=== PATIENT | female | born 1940 | race Caucasian/White ===

== ENCOUNTER 2017-08-25 08:45 | Day surgery (SDC) | payer MEDICARE, OTHER ==
[2017-08-25] MEDS ORDERED: Sodium Chloride 0.9% 10 ML Syringe FLUSH PRN (09:00)
[2017-08-25] MEDS ORDERED: Lactated Ringers 1,000 ML IV SCH (10:00)
[2017-08-25] MEDS ORDERED: Propofol 200 MG/20 ML SDV IV ONE (10:48)
--- NOTE | 2017-08-26 08:37 | OR ---
DATE OF OPERATION: 08/25/2017 SURGEON: Gavino Ponce MD PREOPERATIVE DIAGNOSIS: Cataract, left eye. POSTOPERATIVE DIAGNOSIS: Cataract, left eye. PROCEDURE: Phacoemulsification of cataract left eye with the placement of an Bear, model ZCB00, 22.0 diopter, foldable, posterior chamber intraocular lens. STAPLER COIL UNIT: None. DESCRIPTION OF PROCEDURE: Peribulbar anesthetic was performed using a mixture of 2% lidocaine with Wydase. The patient was prepped and draped in the usual fashion. A 3 mm fornix based conjunctival flap was performed at the 10 o'clock position. Hemostasis was obtained using diathermy, and a 2.8 mm grooved near clear corneal incision was then made. A stab incision was made into the anterior chamber at the 12 o'clock position and a second stab wound incision was made underlying the grooved near clear corneal incision. Viscoat was instilled into the anterior chamber, and a continuous tear capsulotomy was performed. Hydrodissection was accomplished with balanced salt solution, and the nucleus was removed in a divide and conquer fashion. The remaining cortical material was removed with the irrigation and aspiration unit. Viscoat was instilled into the anterior chamber, and an AUREA, model [id number], 22.0 diopter, foldable, posterior chamber intraocular lens was placed into the capsular bag, the haptics placement at the 1 and 7 o'clock positions. The residual Viscoat was removed from the anterior chamber and the anterior chamber reformed with balanced salt solution. The wound was checked and noted to be watertight. The conjunctiva was secured in its original position with diathermy. Alphagan and Maxitrol Ointment were then placed into the patient's eye. The patient tolerated the procedure well and it was without complication. Elapsed phacoemulsification time was 41.2 seconds. Postoperative instructions as related to activities, as well as medications, were reviewed with the patient. The patient was instructed to return to see me on the day following surgery for the first postoperative check. The patient was also instructed to contact me prior to that time if the patient were to have any problems. ADDENDUM: Because of minor discomfort, 0.2 mL of a mixture of phenylephrine, lidocaine, and balanced salt solution were instilled into the anterior chamber during the course of the surgery. This resolved the discomfort. /[id number] DEG/MODL CC: SILVER GARCIA PA-C MTDD
== END 2017-08-25 12:40 | disposition home or self-care (01) ==
LOC: FB.SDS 08:45
PROVIDERS: ATTEND Ophthalmology
DX: H26.9 Unspecified cataract (principal); I25.10 Atherosclerotic heart disease of native coronary artery without angina pectoris; I10 Essential (primary) hypertension; E11.9 Type 2 diabetes mellitus without complications; J44.9 Chronic obstructive pulmonary disease, unspecified; E78.5 Hyperlipidemia, unspecified; E66.9 Obesity, unspecified; I73.9 Peripheral vascular disease, unspecified; Z95.5 Presence of coronary angioplasty implant and graft; Z68.30 Body mass index [BMI] 30.0-30.9, adult; Z79.84 Long term (current) use of oral hypoglycemic drugs; Z79.899 Other long term (current) drug therapy; Z88.0 Allergy status to penicillin; Z88.8 Allergy status to other drugs, medicaments and biological substances; Z87.891 Personal history of nicotine dependence
CPT/HCPCS: 66984; 82962; C1780; J2704; J7120; 00142-QZ

== ENCOUNTER 2017-09-14 07:25 | Day surgery (SDC) | payer MEDICARE, OTHER ==
[2017-09-14] MEDS ORDERED: Lactated Ringers 1,000 ML IV SCH (07:30)
[2017-09-14] MEDS ORDERED: Propofol 200 MG/20 ML SDV IV ONE (09:20)
--- NOTE | 2017-09-15 11:02 | OR ---
DATE OF OPERATION: 09/14/2017 SURGEON: Gavino Ponce MD PREOPERATIVE DIAGNOSIS: Cataract right eye. POSTOPERATIVE DIAGNOSIS: Same. OPERATION PERFORMED: Phacoemulsification of cataract right eye with placement of Bear, model ZCB00, 21.0 diopter, foldable, posterior chamber intraocular lens. COMMUTATOR OPERATOR: None. DESCRIPTION OF PROCEDURE: Peribulbar anesthetic was performed using a mixture of 2% lidocaine with Wydase. The patient was prepped and draped in the usual fashion. A 3 mm fornix based conjunctival flap was performed at the 12 o'clock position. Hemostasis was obtained using diathermy, and a 2.8 mm grooved near clear corneal incision was then made. A stab incision was made into the anterior chamber at the 2:30 o'clock position and a second stab wound incision was made underlying the grooved near clear corneal incision. Viscoat was instilled into the anterior chamber, and a continuous tear capsulotomy was performed. Hydrodissection was accomplished with balanced salt solution, and the nucleus was removed in a divide and conquer fashion. The remaining cortical material was removed with the irrigation and aspiration unit. Viscoat was instilled into the anterior chamber, and an Bear, model ZCB00, 21.0 diopter, foldable, posterior chamber intraocular lens was placed into the capsular bag, the haptics being positioned at the 3 and 9 o'clock positions. The residual Viscoat was removed from the anterior chamber and the anterior chamber reformed with balanced salt solution. The wound was checked and noted to be watertight. The conjunctiva was secured in its original position with diathermy. Alphagan and Maxitrol Ointment were then placed into the patient's eye. The patient tolerated the procedure well and it was without complication. Elapsed phacoemulsification time was 20.3 seconds. Postoperative instructions as related to activities as well as medications were reviewed with the patient. The patient was instructed to return to see me on the day following surgery for the first postoperative check. The patient was also instructed to contact me prior to that time if she were to have any problems. /[id number] DEG/MODL CC: SILVER GARCIA, PROMOTION SPECIALIST
== END 2017-09-14 10:43 | disposition home or self-care (01) ==
LOC: FB.SDS 07:25
PROVIDERS: ATTEND Ophthalmology
DX: H26.9 Unspecified cataract (principal); I10 Essential (primary) hypertension; I25.10 Atherosclerotic heart disease of native coronary artery without angina pectoris; E11.9 Type 2 diabetes mellitus without complications; E66.9 Obesity, unspecified; J44.9 Chronic obstructive pulmonary disease, unspecified; E78.5 Hyperlipidemia, unspecified; I73.9 Peripheral vascular disease, unspecified; Z68.39 Body mass index [BMI] 39.0-39.9, adult; Z79.84 Long term (current) use of oral hypoglycemic drugs; Z79.899 Other long term (current) drug therapy; Z87.891 Personal history of nicotine dependence; Z88.0 Allergy status to penicillin; Z88.8 Allergy status to other drugs, medicaments and biological substances
CPT/HCPCS: 00142; 66984; 82962; C1780; J2704; J7120

== ENCOUNTER 2018-05-07 07:07 | Day surgery (SDC) | payer MEDICARE, OTHER ==
[2018-05-07] MEDS ORDERED: Lactated Ringers 1,000 ML IV SCH (07:30)
[2018-05-07] MEDS ORDERED: Sodium Chloride 0.9% 10 ML Syringe FLUSH PRN (07:30)
[2018-05-07] MEDS ORDERED: Propofol 200 MG/20 ML SDV IV ONE (08:30)
--- NOTE | 2018-05-07 09:28 | PCM.OPNOTE ---
- General Post-Op/Procedure Note Date of Surgery/Procedure: 05/07/18 Operative Procedure(s): c scope with bx Findings: ascending colon polyp, transverse colon polyp, rectal polyps x2 Pre Op Diagnosis: + cologuard Post-Op Diagnosis: ascending colon polyp, transverse colon polyp, rectal polyps x2 Anesthesia Technique: [facility] [place] Primary Surgeon: Jhonny Levy Anesthesia Provider: Won Perez Pathology: ascending colon polyp, transverse colon polyp, rectal polyps x2 Complications: None Condition: Good Free Text/Narrative:: see dictation #[id number]
--- NOTE | 2018-05-07 16:38 | OR ---
DATE OF OPERATION: 05/07/2018 SURGEON: Jhonny Levy MD PROCEDURE PERFORMED: Colonoscopy with hot loop snare and cold forceps biopsy. PREOPERATIVE DIAGNOSIS: Positive Cologuard. POSTOPERATIVE DIAGNOSES: 1. Ascending colon polyp. 2. Transverse colon polyp. 3. Rectal polyp x2 at the proximal and the distal rectum. INDICATIONS FOR PROCEDURE: This is a 77-year-old white female who has never had a colonoscopy, recently had a positive Cologuard exam, and was offered and accepted a colonoscopy. DESCRIPTION OF PROCEDURE: After an excellent IV sedation was administered, digital rectal exam was performed. No marked abnormality was noted. The flexible colonoscope was then inserted and advanced to the cecum without difficulty. The prep was excellent. The following findings were noted: Ascending colon: A small sessile polyp, biopsied with the hot loop snare, and submitted for permanent. Transverse colon: Demonstrated a small polyp, biopsied with cold biopsy forceps, and sent for permanent. Descending colon: Unremarkable. Sigmoid: Occasional diverticula. Rectum: At the proximal rectum, a large pedunculated polyp was removed piecemeal with multiple passes of the hot loop snare. The base was tattooed with ink. There was also in that area another small polyp which was biopsied and submitted in the same container. Just above the anal verge, there was also a pedunculated polyp that was biopsied with the hot loop snare and submitted for permanent. The proximal sigmoid polyp was approximately 3 cm in diameter. The distal rectal polyp was roughly about 2 cm in diameter. The patient tolerated the procedure well and was taken to Recovery in good condition. /[id number] /JOSEEL
== END 2018-05-07 10:25 | disposition home or self-care (01) ==
LOC: FB.SDS 07:07
PROVIDERS: ATTEND Surgery
DX: R19.5 Other fecal abnormalities (principal); D12.8 Benign neoplasm of rectum; K63.5 Polyp of colon; K57.30 Diverticulosis of large intestine without perforation or abscess without bleeding; I10 Essential (primary) hypertension; J44.9 Chronic obstructive pulmonary disease, unspecified; E11.36 Type 2 diabetes mellitus with diabetic cataract; E66.9 Obesity, unspecified; Z68.41 Body mass index [BMI] 40.0-44.9, adult; E78.5 Hyperlipidemia, unspecified; I73.9 Peripheral vascular disease, unspecified; I25.10 Atherosclerotic heart disease of native coronary artery without angina pectoris; Z87.891 Personal history of nicotine dependence; Z79.84 Long term (current) use of oral hypoglycemic drugs; Z79.899 Other long term (current) drug therapy; Z88.0 Allergy status to penicillin; Z88.6 Allergy status to analgesic agent; Z88.1 Allergy status to other antibiotic agents; Z80.0 Family history of malignant neoplasm of digestive organs
CPT/HCPCS: 00812; 45380; 45381; 45385; 82962; 88305; J2704; J7120

== ENCOUNTER → 2018-05-08 | Day surgery (SDC) | payer MEDICARE, OTHER ==
[~2018-05-08] MED LIST: Sodium Phosphate,Monobasic/Sodium Phosphate,Dibasic Enema 133 ML Bottle RECTAL ONE
--- NOTE | 2018-05-08 12:44 | PCM.HP ---
H&P History of Present Illness - General Date of Service: 05/08/18 Admit Problem/Dx: hematochezia Source of Information: Patient - History of Present Illness Initial Comments - Free Text/Narative: Pt underwent a c scope yesterday with a removal of two rectal polyps. She noted some bleeding today. She has passes some blood several times. She does take plavix and has had a does since the procedure. CBC this am was unremarkable. She has no pain. The proximal polyp was large and did come out in pieces with some bleeding. - Related Data Allergies/Adverse Reactions: Allergies Allergy/AdvReac Type Severity Reaction Status Date / Time clotrimazole Allergy Rash Verified 05/08/18 12:35 Penicillins AdvReac Change Verified 05/08/18 12:35 Mental Status Home Medications: Home Meds Calcium Carbonate/Vitamin D3 [Calcium 600 + Vit D 200] 1 each PO BIDMEALS [History] Clopidogrel Bisulfate [Clopidogrel] 75 mg PO DAILY 08/24/17 [History] Gabapentin [Neurontin] 100 mg PO BEDTIME 08/24/17 [History] Lisinopril 20 mg PO DAILY 08/24/17 [History] Metoprolol Tartrate 25 mg PO BID 08/24/17 [History] Simvastatin [Zocor] 20 mg PO BEDTIME 08/24/17 [History] diphenhydrAMINE [Benadryl] 25 mg PO BEDTIME PRN 08/24/17 [History] hydroCHLOROthiazide [Hydrochlorothiazide] 25 mg PO DAILY 08/24/17 [History] metFORMIN HCl [Metformin HCl] 500 mg PO BIDMEALS 08/24/17 [History] Past Medical History HEENT History: Reports: Cataract, Impaired Vision Cardiovascular History: Reports: CAD, High Cholesterol, Hypertension, MT, PVD, Stents Respiratory History: Reports: COPD Gastrointestinal History: Reports: None Genitourinary History: Reports: Other (See Below) Other Genitourinary History: PT HAS HAD YEAST 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 History: Reports: Other OB/BYN History: Musculoskeletal History: Reports: Osteoarthritis Neurological History: Reports: Migraines, Neuropathy, Diabetic Psychiatric History: Reports: None Endocrine/Metabolic History: Reports: Diabetes, Type II, Obesity/BMI 30+ Hematologic History: Reports: Anticoagulation Therapy Other Hematologic History: Is on Plavix Immunologic History: Reports: None Oncologic (Cancer) History: Reports: None Dermatologic History: Reports: None - Infectious Disease History Infectious Disease History: Reports: Chicken Pox, Scarlet Fever - Past Surgical History Head Surgeries/Procedures: Reports: None HEENT Surgical History: Reports: Cataract Surgery Other HEENT Surgeries/Procedures: bilat cataract surgery Cardiovascular Surgical History: Reports: Coronary Artery Stent, Other (See Below) Other Cardiovascular Surgeries/Procedures: stents in heart & legs Respiratory Surgical History: Reports: None GI Surgical History: Reports: Colonoscopy Female Surgical History: Reports: None Endocrine Surgical History: Reports: None Neurological Surgical History: Reports: None Musculoskeletal Surgical History: Reports: None Oncologic Surgical History: Reports: None Social & Family History - Family History Family Medical History: Noncontributory - Tobacco Use Smoking Status *Q: Former Smoker Years of Tobacco use: 30 Used Tobacco, but Quit: Yes Month/Year Tobacco Last Used: 1996 - Caffeine Use Caffeine Use: Reports: Coffee, Soda - Recreational Drug Use Recreational Drug Use: No H&P Review of Systems - Review of Systems: Review Of Systems: See Below General: Reports: No Symptoms Pulmonary: Reports: No Symptoms Cardiovascular: Reports: No Symptoms Gastrointestinal: Reports: Hematochezia Exam - Exam Exam: See Below - Vital Signs Vital Signs: Last Vital Signs Temp 97.7 F 05/08/18 11:30 Pulse 73 05/08/18 11:30 Resp 18 05/08/18 11:30 BP 100/88 05/08/18 11:30 Pulse Ox 98 05/08/18 11:30 Weight: 99.79 kg - Exam General: Alert, Oriented, Cooperative. No: Mild Distress Lungs: Clear to Auscultation, Normal Respiratory Effort Cardiovascular: Regular Rate, Regular Rhythm GI/Abdominal Exam: Normal Bowel Sounds, Soft, Non-Tender, No Organomegaly Rectal (Female) Exam: Deferred (will obtain a flex sig ) - Patient Data Lab Results Last 24 hrs: Laboratory Results - last 24 hr 05/08/18 Range/Units 11:55 WBC 7.7 (4.5-12.0) X10-3/uL RBC 4.54 (3.23-5.20) x10(6)uL Hgb 12.4 (11.5-15.5) g/dL Hct 37.9 (30.0-51.3) % MCV 83.6 (80-96) fL MCH 27.3 L (27.7-33.6) pg MCHC 32.7 (32.2-35.4) g/dL RDW 15.3 (11.5-15.5) % Plt Count 170 (125-369) X10(3)uL MPV 7.8 (7.4-10.4) fL Neut % (Auto) 71.4 (46-82) % Lymph % (Auto) 17.4 (13-37) % [place] % (Auto) 7.4 (4-12) % Eos % (Auto) 2 (1.0-5.0) % Baso % (Auto) 2 (0-2) % Neut # (Auto) 5.5 (1.6-8.3) # Lymph # (Auto) 1.3 (0.6-5.0) # [place] # (Auto) 0.6 (0.0-1.3) # Eos # (Auto) 0.2 (0.0-0.8) # Baso # (Auto) 0.1 (0.0-0.2) # Result Diagrams: 05/08/18 11:55 *Q Meaningful Use (ADM) - VTE Risk Assess *Q Each Risk Factor Represents 2 Points: Age 60 - 74 Years Total Score 2 Point Risk Factors: 2 - Problem List (1) Hematochezia SNOMED Code(s): 542095585 ICD Code: K92.1 - MELENA Status: Acute Current Visit: Yes Problem List Initiated/Reviewed/Updated: Yes Orders Last 24hrs: Active Orders 24 hr Category Date Time Status Verify Patient Consent Obtain [RC] ASDIRECTED Care 05/08/18 12:34 Ordered Na Phos,M-B/Na Phos,DI-B [Fleet Enema] Med 05/08/18 12:33 Once 133 ml RECTAL ONETIME ONE Medication Orders Sodium Biphosphate/Sodium Phosphate (Fleet Enema) 133 ml RECTAL ONETIME ONE Stop: 05/08/18 12:34 Assessment/Plan Comment:: will perform a flex sig to eval the biopsy sites. procedure and risks explained to the pt to include bleeding infection and perforation. she asks us to proceed.
--- NOTE | 2018-05-08 13:37 | PCM.OPNOTE ---
- General Post-Op/Procedure Note Date of Surgery/Procedure: 05/08/18 Operative Procedure(s): flex sig Findings: no active bleeding noted. Pre Op Diagnosis: bleeding per rectum Post-Op Diagnosis: no active bleeding Primary Surgeon: Jhonny Levy Condition: Good Free Text/Narrative:: see dictation
--- NOTE | 2018-05-08 21:41 | OR ---
DATE OF OPERATION: 05/08/2018 SURGEON: Jhonny Levy MD PROCEDURE PERFORMED: Flexible sigmoidoscopy. PREOPERATIVE DIAGNOSIS: Bleeding per rectum. POSTOPERATIVE DIAGNOSIS: No active bleeding noted. INDICATIONS FOR PROCEDURE: This is a 77-year-old white female who had 2 large rectal polyps yesterday, noted some passage of some blood clot and bleeding today with bowel movements. She was offered and accepted flexible sigmoidoscopy to look for active bleeding. DESCRIPTION OF OPERATION: After receiving an enema, digital rectal exam was performed. The flexible endoscope was entered and advanced 20 cm. The scope was slowly withdrawn. The larger of the 2 biopsy sites in the rectum demonstrated no evidence of bleeding and in fact looked very appropriate for 24 hours after a loop snare biopsy. The distal rectal polyp which was just above the anal verge had some old clot, but no active bleeding. Attempts to irrigate the clot off were unsuccessful and it appeared to not require intervention. We will have the patient hold her Plavix until Thursday, keep her followup appointment on Thursday. We have asked her to return as needed. /[id number] /MODL
== END | disposition home or self-care (01) ==
LOC: FB.ED 11:27 → FB.SDS 13:02
PROVIDERS: ATTEND Surgery
DX: K62.5 Hemorrhage of anus and rectum (principal); E11.9 Type 2 diabetes mellitus without complications; I10 Essential (primary) hypertension; J44.9 Chronic obstructive pulmonary disease, unspecified; I25.10 Atherosclerotic heart disease of native coronary artery without angina pectoris; E78.00 Pure hypercholesterolemia, unspecified; I25.2 Old myocardial infarction; Z95.5 Presence of coronary angioplasty implant and graft; Z79.84 Long term (current) use of oral hypoglycemic drugs; Z79.899 Other long term (current) drug therapy; E66.9 Obesity, unspecified; Z79.01 Long term (current) use of anticoagulants; Z87.891 Personal history of nicotine dependence; Z86.010 Personal history of colon polyps; Z88.1 Allergy status to other antibiotic agents; Z88.0 Allergy status to penicillin
CPT/HCPCS: 36415; 85025; 99284

== ENCOUNTER 2019-01-05 06:44 | Day surgery (SDC) | payer MEDICARE, OTHER ==
[2019-01-05] MEDS ORDERED: Midazolam 1 MG/ML 2 ML SDV IV ONE (06:45)
[2019-01-05] MEDS ORDERED: Lactated Ringers 1,000 ML IV SCH (06:45)
[2019-01-05] MEDS ORDERED: Propofol 200 MG/20 ML SDV IV ONE (06:45)
--- NOTE | 2019-01-05 08:21 | PCM.OPNOTE ---
- General Post-Op/Procedure Note Date of Surgery/Procedure: 01/05/19 Operative Procedure(s): c scope with bx Findings: ascendign, descending and sigmoid polyp Pre Op Diagnosis: hx of colon polyps Post-Op Diagnosis: ascendign, descending and sigmoid polyp Anesthesia Technique: MAC Primary Surgeon: Jhonny Levy Anesthesia Provider: Linda Bueno Pathology: ascendign, descending and sigmoid polyp Complications: None Condition: Good Free Text/Narrative:: see dictation
--- NOTE | 2019-01-05 13:58 | OR ---
DATE OF OPERATION: 01/05/2019 SURGEON: Jhonny Levy MD PROCEDURE PERFORMED: Colonoscopy with hot loop and cold forceps biopsy. PREOPERATIVE DIAGNOSIS: Personal history of dysplastic colon polyps. POSTOPERATIVE DIAGNOSIS: Ascending colon polyp, descending colon polyp, and sigmoid colon. INDICATIONS FOR PROCEDURE: This is a 78-year-old white female, underwent a colonoscopy recently, was found to have some low-grade dysplasia, presents for followup scope at this time. DESCRIPTION OF OPERATION: After an excellent IV sedation was administered, digital rectal exam was performed. No marked abnormality was noted. Flexible colonoscope was inserted and advanced to cecum. Prep was excellent. The following findings were noted. In the ascending colon, small polypoid lesion which was rather flat, but this was biopsied with the hot loop snare and submitted in one container. Transverse colon was unremarkable. Descending colon, a small 2 mm area that appeared to be an early adenoma, biopsied and sent for permanent. Sigmoid at the distal sigmoid in the area where a previous biopsy was carried out, there was a 3 mm area that looked to be consistent with adenoma. This was biopsied as well. Remainder of the exam was unremarkable. The patient tolerated the procedure well and was taken to recovery in good condition. Results by letter. /[id number] /MODL
== END 2019-01-05 09:03 | disposition home or self-care (01) ==
LOC: FB.SDS 06:44
PROVIDERS: ATTEND Surgery
DX: D12.2 Benign neoplasm of ascending colon (principal); D12.5 Benign neoplasm of sigmoid colon; K63.5 Polyp of colon; I25.10 Atherosclerotic heart disease of native coronary artery without angina pectoris; I10 Essential (primary) hypertension; E11.51 Type 2 diabetes mellitus with diabetic peripheral angiopathy without gangrene; E78.00 Pure hypercholesterolemia, unspecified; J44.9 Chronic obstructive pulmonary disease, unspecified; E66.9 Obesity, unspecified; Z68.41 Body mass index [BMI] 40.0-44.9, adult; Z88.0 Allergy status to penicillin; Z88.6 Allergy status to analgesic agent; Z88.8 Allergy status to other drugs, medicaments and biological substances; Z95.5 Presence of coronary angioplasty implant and graft; Z87.891 Personal history of nicotine dependence; Z86.010 Personal history of colon polyps; Z79.84 Long term (current) use of oral hypoglycemic drugs; Z79.02 Long term (current) use of antithrombotics/antiplatelets; Z79.899 Other long term (current) drug therapy
CPT/HCPCS: 00812-QZ; 82962; 88305; J2250; J2704; J7120

== ENCOUNTER 2019-12-23 13:45 | Emergency (ER) | payer MEDICARE, OTHER ==
[2019-12-23] MEDS ORDERED: Albuterol/Ipratropium 3.0-0.5 MG/3 ML Neb Soln NEB ONE (14:13)
[2019-12-23] MEDS ORDERED: Furosemide 40 MG Tab PO ONE (14:14)
--- NOTE | 2019-12-23 15:04 | CR ---
INDICATION: Cough, shortness of breath. CHEST, 1 VIEW: An AP upright view of the chest was obtained 12/23/19 and compared with [facility] images from 03/16/15. Evidence of exogenous obesity is again noted. There is an appearance of a nodular density in the low middle, lateral lung field on the right. This could be artifactual. When clinically possible, PA and lateral views of the chest may be helpful for confirmation. It measured approximately 17 mm in craniolateral diameter. Its position is marked by an arrow on the right. No other nodular masses or definite active infiltrate or effusion was identified. The heart did not appear grossly enlarged. A minimal dextroconvex scoliosis of the lower middle thoracic spine is noted. Overlying EKG leads are noted. IMPRESSION: 1. No definite acute process. 2. Possible nodular mass - could not exclude neoplasia, not seen on previous study of 2014, in the right lower middle lung field laterally measuring 17 mm. Followup PA and lateral views of the chest recommended for further evaluation. 3. Exogenous obesity. 4. 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 Report was called to Dr. Gonzalez at 14:51 hours. [facility]
[2019-12-23] MEDS ORDERED: Sodium Chloride 0.9% 1,000 ML IV SCH (15:30)
--- NOTE | 2019-12-23 15:30 | EDM.PDOC ---
ED HPI GENERAL MEDICAL PROBLEM - General Chief Complaint: Respiratory Problem Stated Complaint: SOB Time Seen by Provider: 12/23/19 13:50 Source of Information: Reports: Patient History Limitations: Reports: No Limitations - History of Present Illness INITIAL COMMENTS - FREE TEXT/NARRATIVE: for one week has been feeling weak and tired with loss of appetite then since last 3days has been having sob on exertion , dry cough , no fever denies any chest pain was in clinic and noted to have decrease oxygen saturation and was sent in for evaluation pt has diabetes had stent placed in 2011 , has been on plavix since then Onset: Gradual - Related Data Allergies Allergy/AdvReac Type Severity Reaction Status Date / Time aspirin Allergy Other Verified 12/23/19 14:53 clotrimazole Allergy Rash Verified 12/23/19 14:53 Penicillins AdvReac Change Verified 12/23/19 14:53 Mental Status Home Meds: Home Meds Calcium Carbonate/Vitamin D3 [Calcium 600 + Vit D 200] 1 each PO BIDMEALS [History] Gabapentin [Neurontin] 200 mg PO BEDTIME 08/24/17 [History] Lisinopril 20 mg PO DAILY 08/24/17 [History] Metoprolol Tartrate 25 mg PO BID 08/24/17 [History] Simvastatin [Zocor] 20 mg PO BEDTIME 08/24/17 [History] diphenhydrAMINE [Benadryl] 25 mg PO BEDTIME PRN 08/24/17 [History] hydroCHLOROthiazide [Hydrochlorothiazide] 25 mg PO DAILY 08/24/17 [History] metFORMIN HCl [Metformin HCl] 500 mg PO BIDMEALS 08/24/17 [History] Clopidogrel Bisulfate [Clopidogrel] 1 tab PO DAILY 01/04/19 [History] Past Medical History HEENT History: Reports: Other (See Below) Other HEENT History: HX CONJUNCTIVITIS Cardiovascular History: Reports: CAD, High Cholesterol, Hypertension, PVD Respiratory History: Reports: COPD Gastrointestinal History: Reports: None, Colon Polyp Genitourinary History: Reports: Other (See Below) Other Genitourinary History: PT HAS HAD YEAST INFECTIONS IN PAST 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 History: Musculoskeletal History: Reports: Osteoarthritis Neurological History: Reports: Migraines, Neuropathy, Diabetic Psychiatric History: Reports: None Endocrine/Metabolic History: Reports: Diabetes, Type II Hematologic History: Reports: Anticoagulation Therapy Other Hematologic History: Is on Plavix Immunologic History: Reports: None Oncologic (Cancer) History: Reports: None Dermatologic History: Reports: None - Infectious Disease History Infectious Disease History: Reports: Chicken Pox, Scarlet Fever - Past Surgical History Head Surgeries/Procedures: Reports: None HEENT Surgical History: Reports: Cataract Surgery Other HEENT Surgeries/Procedures: bilat cataract surgery Cardiovascular Surgical History: Reports: Coronary Artery Stent Other Cardiovascular Surgeries/Procedures: stents in heart & legs Respiratory Surgical History: Reports: None GI Surgical History: Reports: Colonoscopy Female Surgical History: Reports: None Endocrine Surgical History: Reports: None Neurological Surgical History: Reports: None Musculoskeletal Surgical History: Reports: None Oncologic Surgical History: Reports: None Social & Family History - Family History Family Medical History: Unobtainable - Tobacco Use Smoking Status *Q: Former Smoker Used Tobacco, but Quit: Yes Month/Year Tobacco Last Used: 1996 - Caffeine Use Caffeine Use: Reports: None - Recreational Drug Use Recreational Drug Use: No ED ROS GENERAL - Review of Systems Review Of Systems: See Below Constitutional: Reports: Malaise, Weakness. Denies: Fever, Chills HEENT: Reports: No Symptoms Respiratory: Reports: Shortness of Breath. Denies: Cough, Sputum Cardiovascular: Reports: Dyspnea on Exertion, Edema, Lightheadedness, Orthopnea. Denies: Chest Pain Endocrine: Reports: Fatigue GI/Abdominal: Reports: Anorexia, Decreased Appetite. Denies: Diarrhea : Reports: No Symptoms Musculoskeletal: Reports: No Symptoms Skin: Reports: No Symptoms Neurological: Reports: Dizziness Psychiatric: Reports: No Symptoms Hematologic/Lymphatic: Reports: No Symptoms ED EXAM, GENERAL - Physical Exam Exam: See Below Exam Limited By: Intoxication General Appearance: Alert, WD/WN, Obese Eye Exam: Bilateral Eye: EOMI Ears: Normal External Exam Nose: Normal Inspection Throat/Mouth: Normal Inspection Head: Atraumatic Neck: Supple Respiratory/Chest: Lungs Clear Cardiovascular: Regular Rate, Rhythm GI/Abdominal: Soft, Non-Tender Back Exam: Full Range of Motion. No: CVA Tenderness (R), CVA Tenderness (L) Extremities: Pedal Edema (upto mid leg) Neurological: Alert, Oriented, CN II-XII Intact Psychiatric: Normal Affect Skin Exam: Warm EKG INTERPRETATION EKG Date: 12/23/19 Rhythm: NSR P-Wave: Present QRS: Normal ST-T: Depressed Course - Vital Signs Last Recorded V/S: Last Vital Signs Temp 36.5 C 12/23/19 13:45 Pulse 78 12/23/19 13:45 Resp 18 12/23/19 13:45 BP 127/78 12/23/19 13:45 Pulse Ox 93 L 12/23/19 13:45 - Orders/Labs/Meds Orders: Active Orders 24 hr Category Date Time Status EKG Documentation Completion [RC] ASDIRECTED Care 12/23/19 14:57 Active Oxygen Therapy Adult [Oxygen Therapy, ED] [] Care 12/23/19 14:50 Active ASDIRECTED RT Aerosol Therapy [RC] ASDIRECTED Care 12/23/19 14:14 Active Chest 2V [CR] Stat Exams 12/23/19 15:00 Taken INR,PT,PROTHROMBIN TIME [COAG] Stat Lab 12/23/19 14:00 Received PTT,PARTIAL THROMBOPLSTIN TIME [COAG] Stat Lab 12/23/19 14:00 Received Heparin Sodium/0.45% NaCl [Heparin 25,000 Units in 1/2 Med 12/23/19 15:45 Active NS 500 ML] 500 ml IV ASDIRECTED Sodium Chloride 0.9% [Normal Saline] 1,000 ml Med 12/23/19 15:30 Active IV ASDIRECTED EKG 12 Lead [EK] Routine Ther 12/23/19 14:57 Ordered Medication Orders Sodium Chloride (Normal Saline) 1,000 mls @ 250 mls/hr IV ASDIRECTED [facility] Last Admin: 12/23/19 16:47 Dose: 250 mls/hr Heparin Sodium/Sodium Chloride (Heparin 25,000 Units In 1/2 Ns 500 Ml) 500 mls @ 20 mls/hr IV ASDIRECTED [facility] Last Admin: 12/23/19 16:47 Dose: 20 mls/hr Labs: Laboratory Tests 12/23/19 12/23/19 12/23/19 Range/Units 14:00 14:00 14:00 WBC 19.7 H (4.5-12.0) X10-3/uL RBC 4.92 (3.23-5.20) x10(6)uL Hgb 14.9 (11.5-15.5) g/dL Hct 45.0 (30.0-51.3) % MCV 91.4 (80-96) fL MCH 30.3 (27.7-33.6) pg MCHC 33.2 (32.2-35.4) g/dL RDW 13.7 (11.5-15.5) % Plt Count 63 L (125-369) X10(3)uL MPV 7.3 L (7.4-10.4) fL Add Manual Diff Yes Neutrophils % (Manual) 78 (46-82) % Band Neutrophils % 4 (0-6) % Lymphocytes % (Manual) 14 (13-37) % Monocytes % (Manual) 4 (4-12) % Sodium 137 (135-145) mmol/L Potassium 4.2 (3.5-5.3) mmol/L Chloride 96 L (100-110) mmol/L Carbon Dioxide 28 (21-32) mmol/L BUN 74 H (7-18) mg/dL Creatinine 2.2 H* (0.55-1.02) mg/dL Est Cr Clr Drug Dosing 18.49 mL/min Estimated GFR (MDRD) 22 L (>60) BUN/Creatinine Ratio 33.6 H (9-20) Glucose 162 H (80-116) mg/dL Calcium 9.7 (8.6-10.2) mg/dL Magnesium (1.8-2.5) mg/dL Troponin I 200.1 H* (4.0-60.3) pg/mL NT-Pro-B Natriuret Pep (<=450) pg/mL 12/23/19 12/23/19 Range/Units 14:00 14:00 WBC (4.5-12.0) X10-3/uL RBC (3.23-5.20) x10(6)uL Hgb (11.5-15.5) g/dL Hct (30.0-51.3) % MCV (80-96) fL MCH (27.7-33.6) pg MCHC (32.2-35.4) g/dL RDW (11.5-15.5) % Plt Count (125-369) X10(3)uL MPV (7.4-10.4) fL Add Manual Diff Neutrophils % (Manual) (46-82) % Band Neutrophils % (0-6) % Lymphocytes % (Manual) (13-37) % Monocytes % (Manual) (4-12) % Sodium (135-145) mmol/L Potassium (3.5-5.3) mmol/L Chloride (100-110) mmol/L Carbon Dioxide (21-32) mmol/L BUN (7-18) mg/dL Creatinine (0.55-1.02) mg/dL Est Cr Clr Drug Dosing mL/min Estimated GFR (MDRD) (>60) BUN/Creatinine Ratio (9-20) Glucose (80-116) mg/dL Calcium (8.6-10.2) mg/dL Magnesium 2.0 (1.8-2.5) mg/dL Troponin I (4.0-60.3) pg/mL NT-Pro-B Natriuret Pep 50384 H* (<=450) pg/mL Meds: Medications Generic Name Dose Route Start Last Admin Trade Name Freq PRN Reason Stop Dose Admin Sodium Chloride 1,000 mls @ 250 mls/hr 12/23/19 15:30 12/23/19 16:47 Normal Saline IV 250 mls/hr ASDIRECTED DARRYL Administration Heparin Sodium/Sodium Chloride 500 mls @ 20 mls/hr 12/23/19 15:45 12/23/19 16 :47 Heparin 25,000 Units In 1/2 Ns 500 Ml IV 20 mls/hr ASDIRECTED DARRYL Administration Discontinued Medications Generic Name Dose Route Start Last Admin Trade Name Freq PRN Reason Stop Dose Admin Albuterol/Ipratropium 3 ml 12/23/19 14:13 12/23/19 14:20 Duoneb 3.0-0.5 Mg/3 Ml NEB 12/23/19 14:14 3 ml ONETIME ONE Administration Furosemide 40 mg 12/23/19 14:14 12/23/19 14:30 Lasix PO 12/23/19 14:15 40 mg ONETIME ONE Administration Heparin Sodium (Porcine) 5,000 units 12/23/19 15:35 12/23/19 16:45 Heparin Sodium IVPUSH 12/23/19 15:36 5,000 units ONETIME ONE Administration - Re-Assessments/Exams Free Text/Narrative Re-Assessment/Exam: 12/23/19 17:48 allergic to aspirin , so not given had EKG done started on Heparin , pt is on plavix, metoprolol Call made to [facility], 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 and accepted pt for transfer pt has been stable Departure - Departure Time of Disposition: 17:45 Disposition: DC/Tfer to [facility] Clinical Impression: NSTEMI (non-ST elevated myocardial infarction), CAD (coronary artery disease), Shortness of breath on exertion - Discharge Information *PRESCRIPTION DRUG MONITORING PROGRAM REVIEWED*: Not Applicable *COPY OF PRESCRIPTION DRUG MONITORING REPORT IN PATIENT INOCENCIA: Not Applicable Referrals: Sharmila Cardoza NP [Primary Care Provider] - Forms: ED Department Discharge Sepsis Event Note - Evaluation Sepsis Screening Result: No Definite Risk - Focused Exam Vital Signs: Vital Signs Temp Pulse Resp BP Pulse Ox 12/23/19 13:45 36.5 C 78 18 127/78 93 L Date Exam was Performed: 12/23/19 Time Exam was Performed: 17:43 - My Orders Last 24 Hours: My Active Orders 12/23/19 14:00 INR,PT,PROTHROMBIN TIME [COAG] Stat PTT,PARTIAL THROMBOPLSTIN TIME [COAG] Stat 12/23/19 14:14 RT Aerosol Therapy [RC] ASDIRECTED 12/23/19 14:50 Oxygen Therapy Adult [Oxygen Therapy, ED] [RC] ASDIRECTED 12/23/19 14:57 EKG Documentation Completion [RC] ASDIRECTED EKG 12 Lead [EK] Routine 12/23/19 15:00 Chest 2V [CR] Stat 12/23/19 15:30 Sodium Chloride 0.9% [Normal Saline] 1,000 ml IV ASDIRECTED 12/23/19 15:45 Heparin Sodium/0.45% NaCl [Heparin 25,000 Units in 1/2 NS 500 ML] 500 ml IV ASDIRECTED - Assessment/Plan Last 24 Hours: My Active Orders 12/23/19 14:00 INR,PT,PROTHROMBIN TIME [COAG] Stat PTT,PARTIAL THROMBOPLSTIN TIME [COAG] Stat 12/23/19 14:14 RT Aerosol Therapy [RC] ASDIRECTED 12/23/19 14:50 Oxygen Therapy Adult [Oxygen Therapy, ED] [RC] ASDIRECTED 12/23/19 14:57 EKG Documentation Completion [RC] ASDIRECTED EKG 12 Lead [EK] Routine 12/23/19 15:00 Chest 2V [CR] Stat 12/23/19 15:30 Sodium Chloride 0.9% [Normal Saline] 1,000 ml IV ASDIRECTED 12/23/19 15:45 Heparin Sodium/0.45% NaCl [Heparin 25,000 Units in 1/2 NS 500 ML] 500 ml IV ASDIRECTED
[2019-12-23] MEDS ORDERED: Heparin Sodium 5,000 Units/ML Vial IVPUSH ONE (15:35)
[2019-12-23] MEDS ORDERED: Heparin Sodium/0.45% NaCl 500 ML IV SCH (15:45)
--- NOTE | 2019-12-26 07:50 | CR ---
INDICATION: Cough. Shortness of breath. Probable nodule on AP view indistinctly visualized. CHEST TWO VIEWS: AP and lateral views of the chest were obtained 1448 hours and compared with AP study of 1421 hours and confirmed position of a nodular mass in the lower middle lung field laterally on the right. However, it is not definitely visualized on the lateral view. The lateral view is somewhat limited in that the posterior portion of the right lung was not included on the study. IMPRESSION: Findings strongly suggest a nodular mass in the lower middle lung field laterally on the right. CT scan without and with IV contrast is recommended for further evaluation, as malignancy cannot be excluded. Report was called to Dr. Gonzalez at 1513 hours. [facility]
== END 2019-12-23 18:00 | disposition critical access hospital (66) ==
LOC: FB.ED 13:45
DX: I21.4 Non-ST elevation (NSTEMI) myocardial infarction (principal); I25.10 Atherosclerotic heart disease of native coronary artery without angina pectoris; E78.00 Pure hypercholesterolemia, unspecified; E11.40 Type 2 diabetes mellitus with diabetic neuropathy, unspecified; I10 Essential (primary) hypertension; E11.51 Type 2 diabetes mellitus with diabetic peripheral angiopathy without gangrene; J44.9 Chronic obstructive pulmonary disease, unspecified; Z79.02 Long term (current) use of antithrombotics/antiplatelets; Z88.0 Allergy status to penicillin; Z88.1 Allergy status to other antibiotic agents; Z79.84 Long term (current) use of oral hypoglycemic drugs; Z79.899 Other long term (current) drug therapy; Z87.891 Personal history of nicotine dependence
CPT/HCPCS: 36415; 71045; 71046; 80048; 83735; 83880; 84484; 85025; 85610; 85730; 93005; 94640; 96365; 99285; 99285-25; A9270-GY; J1644; J7030; J7620-GY